=== PATIENT | male | born 1955 | race Caucasian/White ===

== ENCOUNTER 2017-10-24 18:52 | Inpatient (IN) ==
[2017-10-24 20:00] LABS: Eosinophils % 7.5 % (0.00-10.9); Hemoglobin 12.4 GM/DL (14.0-18.0); Lymphocytes # 0.2 10*3/uL (1.4-4.0); Lymphocytes % 37.5 % (21.2-54.2); Mean Corpuscular HGB Conc 34.4 GM/DL (32-36); Mean Corpuscular Hemoglobin 28 PG (27-34); Mean Platelet Volume 10.8 FL (9.6-12.0); Monocytes # 0.2 10*3/uL (0.11-0.8); Monocytes % 37.5 % (1.7-12.7); Neutrophils # 0.1 10*3/uL (1.4-7.4); Neutrophils % 17.5 % (38.7-73.9); Platelet Count 128 T/CUMM (130-400); Red Blood Count 4.39 MC/CUMM (3.8-5.5); Red Cell Distribution Width 12.3 % (9.3-17.3)
[2017-10-24 20:13] LABS: White Blood Count 0.4 T/CUMM (4-12)
[2017-10-24] MEDS ORDERED: SODIUM CHLORIDE 0.9% 1,000 ML IV STA (20:30)
[2017-10-24 20:37] LABS: Eosinophils 18 % (0-10); Lymphocytes 48 % (20-55); Microcytosis Slight; Platelet Estimate Adequate; Segmented Neutrophils 13 % (50-85); Total Cells Counted 102
[2017-10-24 20:39] LABS: Albumin 3.2 G/DL (3.4-5.0); Bilirubin,Total 1.6 MG/DL (0.2-1.0); Calcium 8.4 MG/DL (8.5-10.1); Osmolality,Calculated 281.7 MOS/KG (273-304); Potassium 3.6 MMOL/L (3.5-5.1); Total Protein 6.8 G/DL (6.4-8.3)
[2017-10-24 20:40] LABS: Lactic Acid 1.3 MMOL/L (0.4-2.0)
[2017-10-25] MEDS ORDERED: GLUCAGON 1 MG VIAL IM PRN (00:01)
[2017-10-25] MEDS ORDERED: DEXTROSE 50% 25 GM/50 ML VIAL IV PRN (00:01)
[2017-10-25] MEDS ORDERED: DEXTROSE 5% NACL 0.45% 1,000 ML IV SCH (00:01)
[2017-10-25] MEDS ORDERED: ONDANSETRON 4 MG/2 ML VIAL IV PRN ×2 (00:01→07:05)
[2017-10-25] MEDS: MEROPENEM 1,000 MG in SODIUM CHLORIDE 0.9% 100 ML IV SCH ×4 (00:23→23:20)
[2017-10-25] MEDS: FILGRASTIM-SNDZ 300 MCG/0.5 ML SYRINGE SUBCUT SCH ×2 (00:37→08:20)
[2017-10-25] MEDS: ACETAMINOPHEN 325 MG TABLET PO PRN ×3 (04:17→20:39)
[2017-10-25] MEDS ORDERED: PROMETHAZINE INJ 25 MG in SODIUM CHLORIDE 0.9% 50 ML IV PRN (07:05)
[2017-10-25] MEDS ORDERED: LOPERAMIDE 2 MG CAPSULE PO PRN ×2 (07:05)
[2017-10-25] MEDS ORDERED: traMADol 50 MG TABLET PO PRN (07:05)
[2017-10-25] MEDS ORDERED: ALPRAZolam 0.25 MG TABLET PO PRN (07:05)
[2017-10-25] MEDS ORDERED: MYLANTA/LIDO VISC 2:1 300 ML BOTTLE SWISH/SWAL PRN (07:05)
[2017-10-25] MEDS ORDERED: chlorproMAZINE INJ 25 MG in SODIUM CHLORIDE 0.9% 100 ML IV PRN (07:05)
[2017-10-25] MEDS ORDERED: BENZTROPINE 2 MG/2 ML AMP IV PRN (07:05)
[2017-10-25] MEDS ORDERED: chlorproMAZINE 25 MG TABLET PO PRN (07:05)
[2017-10-25] MEDS ORDERED: MYLANTA/LIDO VISC 2:1 300 ML BOTTLE SWISH/SPIT PRN (07:05)
[2017-10-25] MEDS ORDERED: ACETAMINOPHEN 325 MG TABLET PO PRN (07:05)
[2017-10-25] MEDS ORDERED: diphenhydrAMINE CAP 25 MG CAPSULE PO PRN (07:05)
[2017-10-25] MEDS ORDERED: ALUMINUM/MAGNES/SIMETH MAX STR 30 ML UDCUP PO PRN (07:05)
[2017-10-25] MEDS ORDERED: guaiFENesin 200 MG/10 ML UDCUP PO PRN (07:05)
[2017-10-25] MEDS ORDERED: chlorproMAZINE INJ 50 MG in SODIUM CHLORIDE 0.9% 100 ML IV PRN (07:05)
[2017-10-25] MEDS ORDERED: MAGNESIUM HYDROXIDE SUSP 30 ML UDCUP PO PRN (07:05)
[2017-10-25] MEDS ORDERED: TEMAZEPAM 7.5 MG CAPSULE PO PRN (07:05)
[2017-10-25] MEDS ORDERED: LACTULOSE 20 GM/30 ML UDCUP PO PRN (07:05)
[2017-10-25 08:57] LABS: Eosinophils % 5.4 % (0.00-10.9); Hematocrit 32.4 VOL% (42.0-52.0); Lymphocytes # 0.3 10*3/uL (1.4-4.0); Lymphocytes % 46.4 % (21.2-54.2); Mean Corpuscular Hemoglobin 29 PG (27-34); Mean Corpuscular Volume 83.9 FL (87-102); Mean Platelet Volume 10.7 FL (9.6-12.0); Monocytes # 0.2 10*3/uL (0.11-0.8); Monocytes % 37.5 % (1.7-12.7); Neutrophils # 0.1 10*3/uL (1.4-7.4); Neutrophils % 10.7 % (38.7-73.9); Red Blood Count 3.86 MC/CUMM (3.8-5.5); Red Cell Distribution Width 12.5 % (9.3-17.3)
[2017-10-25 08:58] LABS: Platelet Count 106 T/CUMM (130-400); White Blood Count 0.6 T/CUMM (4-12)
[2017-10-25 09:20] LABS: Hypochromasia 1+; Lymphocytes 80 % (20-55); Platelet Estimate Decreased; Segmented Neutrophils 10 % (50-85); Total Cells Counted 100
[2017-10-25 09:21] LABS: Microcytosis Slight
[2017-10-25 09:35] LABS: Albumin 2.6 G/DL (3.4-5.0); Bilirubin,Total 1.3 MG/DL (0.2-1.0); Osmolality,Calculated 280.1 MOS/KG (273-304); Potassium 3.8 MMOL/L (3.5-5.1); Total Protein 6.4 G/DL (6.4-8.3)
[2017-10-25] MEDS: DEXT 5% NACL 0.45% KCL 20 MEQ 20 MEQ/1,000 ML BAG IV SCH ×2 (09:43→20:37)
[2017-10-25 12:04] LABS: Apearance,Urine CLEAR (Clear); Bilirubin,Urine Negative (Negative); Blood, Urine Negative (Negative); Glucose,Urine (UA) >=500 mg/dL (Negative); Ketones,Urine 5 mg/dL (Negative); Mucus,Urine Occasional /LPF (Occasional); Nitrite,Urine Negative (Negative); Protein,Urine Negative; RBC,Urine 1 /HPF (0-4); Urine Color Yellow (Yellow); Urine Specific Gravity 1.017 (1.001-1.035); Urine Urobilinogen < 2.0 EU/DL (0.2-1.0); WBC,Urine 1 /HPF (0-6)
[2017-10-25] MEDS ORDERED: ONDANSETRON 4 MG TABLET PO PRN (12:40)
[2017-10-25] MEDS ORDERED: PSYLLIUM POWDER 3.7 GM/PACK PO PRN (12:40)
[2017-10-25] MEDS ORDERED: POLYETHYLENE GLYCOL POWDER 17 GM PACK PO PRN (12:40)
[2017-10-25] MEDS: LOSARTAN 50 MG TABLET PO SCH (13:12)
[2017-10-25] MEDS: CHOLECALCIFEROL 1,000 UNIT TABLET PO SCH (13:12)
[2017-10-25] MEDS: MULTIVITAMIN (CENTRUM) TABLET PO SCH (13:12)
[2017-10-25] MEDS: ALLOPURINOL 100 MG TABLET PO SCH (13:12)
[2017-10-25] MEDS: DRONEDARONE 400 MG TABLET PO SCH (13:30)
[2017-10-25] MEDS: ASPIRIN EC 81 MG TABLET PO SCH (20:40)
[2017-10-25] MEDS: SIMVASTATIN 10 MG TABLET PO SCH (20:41)
[2017-10-25] MEDS: FLUTICASONE 50 MCG NASAL SPRAY 16 GM BOTTLE BOTH NARES SCH (20:42)
[2017-10-25] MEDS: traZODone 50 MG TABLET PO SCH (22:06)
[2017-10-26] MEDS: ACETAMINOPHEN 325 MG TABLET PO PRN ×4 (02:32→23:46)
[2017-10-26] MEDS: DEXT 5% NACL 0.45% KCL 20 MEQ 20 MEQ/1,000 ML BAG IV SCH ×3 (02:34→19:49)
[2017-10-26 04:23] LABS: Basophils % 0.8 % (0.0-0.8); Eosinophils # 0.1 10*3/uL (0.0-0.87); Eosinophils % 9.3 % (0.00-10.9); Hematocrit 31.9 VOL% (42.0-52.0); Hemoglobin 10.8 GM/DL (14.0-18.0); Immature Granulocytes % 6.8 %; Immature Granulocytes Absolute 0.08 #; Lymphocytes # 0.5 10*3/uL (1.4-4.0); Lymphocytes % 40.7 % (21.2-54.2); Mean Corpuscular HGB Conc 33.9 GM/DL (32-36); Mean Corpuscular Hemoglobin 29 PG (27-34); Mean Corpuscular Volume 84.4 FL (87-102); Mean Platelet Volume 10.7 FL (9.6-12.0); Monocytes # 0.4 10*3/uL (0.11-0.8); Monocytes % 35.6 % (1.7-12.7); Neutrophils # 0.1 10*3/uL (1.4-7.4); Neutrophils % 6.8 % (38.7-73.9); Platelet Count 106 T/CUMM (130-400); Red Blood Count 3.78 MC/CUMM (3.8-5.5); Red Cell Distribution Width 12.8 % (9.3-17.3); White Blood Count 1.2 T/CUMM (4-12)
[2017-10-26 04:42] LABS: Albumin 2.6 G/DL (3.4-5.0); Bilirubin,Total 1.2 MG/DL (0.2-1.0); Calcium 7.8 MG/DL (8.5-10.1); Osmolality,Calculated 275.8 MOS/KG (273-304); Potassium 3.7 MMOL/L (3.5-5.1); Total Protein 6.3 G/DL (6.4-8.3)
[2017-10-26 05:17] LABS: Band Neutrophils 7 % (0-10); Eosinophils 7 % (0-10); Metamyelocytes 7 %; Segmented Neutrophils 9 % (50-85)
[2017-10-26 05:18] LABS: Lymphocytes 44 % (20-55); Platelet Estimate Decreased; Total Cells Counted 100
[2017-10-26 05:19] LABS: Anisocytosis Slight; Macrocytosis Slight
[2017-10-26] MEDS: FILGRASTIM-SNDZ 300 MCG/0.5 ML SYRINGE SUBCUT SCH (09:56)
[2017-10-26] MEDS: MEROPENEM 1,000 MG in SODIUM CHLORIDE 0.9% 100 ML IV SCH ×3 (09:56→23:39)
[2017-10-26] MEDS: CHOLECALCIFEROL 1,000 UNIT TABLET PO SCH (09:57)
[2017-10-26] MEDS: ALLOPURINOL 100 MG TABLET PO SCH (09:57)
[2017-10-26] MEDS: MULTIVITAMIN (CENTRUM) TABLET PO SCH (09:57)
[2017-10-26] MEDS: LOSARTAN 50 MG TABLET PO SCH (09:58)
[2017-10-26] MEDS: FUROSEMIDE 20 MG TABLET PO SCH (09:58)
[2017-10-26] MEDS: DRONEDARONE 400 MG TABLET PO SCH (10:02)
[2017-10-26] MEDS: FLUTICASONE 50 MCG NASAL SPRAY 16 GM BOTTLE BOTH NARES SCH ×2 (11:08→21:23)
[2017-10-26] MEDS: SIMVASTATIN 10 MG TABLET PO SCH (21:22)
[2017-10-26] MEDS: ASPIRIN EC 81 MG TABLET PO SCH (21:22)
[2017-10-26] MEDS: traZODone 50 MG TABLET PO SCH (22:29)
[2017-10-27] MEDS: DEXT 5% NACL 0.45% KCL 20 MEQ 20 MEQ/1,000 ML BAG IV SCH (04:18)
[2017-10-27 04:44] LABS: Basophils # 0.1 10*3/uL (0.0-0.2); Basophils % 1.1 % (0.0-0.8); Eosinophils # 0.2 10*3/uL (0.0-0.87); Eosinophils % 4.4 % (0.00-10.9); Hematocrit 31.6 VOL% (42.0-52.0); Hemoglobin 10.7 GM/DL (14.0-18.0); Immature Granulocytes % 11.2 %; Immature Granulocytes Absolute 0.59 #; Lymphocytes # 1.1 10*3/uL (1.4-4.0); Lymphocytes % 21.3 % (21.2-54.2); Mean Corpuscular HGB Conc 33.9 GM/DL (32-36); Mean Corpuscular Hemoglobin 29 PG (27-34); Mean Corpuscular Volume 84.9 FL (87-102); Mean Platelet Volume 10.7 FL (9.6-12.0); Monocytes # 0.8 10*3/uL (0.11-0.8); Monocytes % 15.4 % (1.7-12.7); Neutrophils # 2.5 10*3/uL (1.4-7.4); Neutrophils % 46.6 % (38.7-73.9); Platelet Count 127 T/CUMM (130-400); Red Blood Count 3.72 MC/CUMM (3.8-5.5); Red Cell Distribution Width 13.1 % (9.3-17.3); White Blood Count 5.3 T/CUMM (4-12)
[2017-10-27 05:23] LABS: Albumin 2.3 G/DL (3.4-5.0); Bilirubin,Total 1.1 MG/DL (0.2-1.0); Calcium 8.1 MG/DL (8.5-10.1); Osmolality,Calculated 280.4 MOS/KG (273-304); Potassium 3.9 MMOL/L (3.5-5.1); Total Protein 5.9 G/DL (6.4-8.3)
[2017-10-27 06:04] LABS: Band Neutrophils 9 % (0-10); Eosinophils 4 % (0-10); Lymphocytes 28 % (20-55); Segmented Neutrophils 43 % (50-85); Total Cells Counted 100
[2017-10-27 06:05] LABS: Atypical Lymphocytes Few; Hypochromasia 1+
[2017-10-27 06:06] LABS: Microcytosis 1+; Platelet Estimate Adequate
[2017-10-27] MEDS: MULTIVITAMIN (CENTRUM) TABLET PO SCH (08:29)
[2017-10-27] MEDS: CHOLECALCIFEROL 1,000 UNIT TABLET PO SCH (08:29)
[2017-10-27] MEDS: LOSARTAN 50 MG TABLET PO SCH (08:29)
[2017-10-27] MEDS: ALLOPURINOL 100 MG TABLET PO SCH (08:30)
[2017-10-27] MEDS: DRONEDARONE 400 MG TABLET PO SCH (08:30)
[2017-10-27] MEDS: FILGRASTIM-SNDZ 300 MCG/0.5 ML SYRINGE SUBCUT SCH (08:30)
[2017-10-27] MEDS: MEROPENEM 1,000 MG in SODIUM CHLORIDE 0.9% 100 ML IV SCH (08:31)
[2017-10-27] MEDS: FUROSEMIDE 20 MG TABLET PO SCH (08:33)
[2017-10-27] MEDS: FLUTICASONE 50 MCG NASAL SPRAY 16 GM BOTTLE BOTH NARES SCH (08:38)
[2017-10-27 08:45] VITALS: BP 114/80
[2017-10-27] MEDS ORDERED: HEPARIN LOCK FLUSH 500 UNIT/5 ML SYRINGE IV ONE (10:41)
== END 2017-10-27 10:54 | disposition home or self-care (01) | DRG 872 ==
LOC: N.ED 18:52 → N.EDINP 21:54 → N.TELEN 22:57 → N.4E 10-25 05:58
PROVIDERS: ADMIT Specialist; ATTEND Specialist

== ENCOUNTER 2019-08-23 14:22 | Inpatient (IN) ==
[2019-08-23] MEDS ORDERED: MAGNESIUM SULF RIDER 4 GM in PREMIX 1 EACH IV PRN (14:45)
[2019-08-23] MEDS ORDERED: diphenhydrAMINE CAP 25 MG CAPSULE PO PRN (14:45)
[2019-08-23] MEDS ORDERED: MORPHINE 4 MG/1 ML VIAL IV PRN (14:45)
[2019-08-23] MEDS ORDERED: ALUMINUM/MAGNES/SIMETH MAX STR 30 ML UDCUP PO PRN (14:45)
[2019-08-23] MEDS ORDERED: MAGNESIUM SULF RIDER 2 GM in PREMIX 1 EACH IV PRN (14:45)
[2019-08-23] MEDS ORDERED: hydrALAZINE 20 MG/1 ML VIAL IV PRN (14:45)
[2019-08-23] MEDS ORDERED: ONDANSETRON 4 MG/2 ML VIAL IV PRN (14:45)
[2019-08-23] MEDS ORDERED: ZALEPLON 5 MG CAPSULE PO PRN (14:45)
[2019-08-23] MEDS ORDERED: FLECAINIDE 100 MG TABLET PO ONE (14:49)
[2019-08-23] MEDS ORDERED: FUROSEMIDE 20 MG TABLET PO PRN (14:50)
[2019-08-23] MEDS ORDERED: traZODone 50 MG TABLET PO PRN (14:51)
[2019-08-23] MEDS ORDERED: FLECAINIDE 50 MG TABLET PO SCH (15:00)
[2019-08-23] MEDS ORDERED: POLYETHYLENE GLYCOL POWDER 17 GM PACK PO PRN (16:12)
[2019-08-23 18:18] LABS: Basophils % 0.6 % (0.0-0.8); Eosinophils # 0.3 10*3/uL (0.0-0.87); Eosinophils % 4.2 % (0.00-10.9); Hematocrit 37.9 VOL% (42.0-52.0); Hemoglobin 12.8 GM/DL (14.0-18.0); Immature Granulocytes % 0.1 %; Immature Granulocytes Absolute 0.01 #; Lymphocytes # 1.2 10*3/uL (1.4-4.0); Lymphocytes % 17.2 % (21.2-54.2); Mean Corpuscular HGB Conc 33.8 GM/DL (32-36); Mean Corpuscular Volume 87.3 FL (87-102); Mean Platelet Volume 10.3 FL (9.6-12.0); Monocytes % 8.4 % (1.7-12.7); Neutrophils % 69.5 % (38.7-73.9); Platelet Count 167 T/CUMM (130-400); Red Blood Count 4.34 MC/CUMM (3.8-5.5); Red Cell Distribution Width 13.2 % (9.3-17.3); White Blood Count 7.2 T/CUMM (4-12)
[2019-08-23 18:38] LABS: Alanine Aminotransferase 22 U/L (16-61); Albumin 3.5 G/DL (3.4-5.0); Alkaline Phosphatase 65 U/L (45-117); Aspartate Amino Transferase 15 U/L (0-37); Bilirubin,Total < 0.39 MG/DL (0.2-1.0); Blood Urea Nitrogen 24 MG/DL (7-18); Calcium 8.4 MG/DL (8.5-10.1); Estimated Glom Filtration Rate 60 ML/MIN; Glucose 153 MG/DL (74-106); Osmolality,Calculated 285.4 MOS/KG (273-304); Total Protein 6.6 G/DL (6.4-8.3)
[2019-08-23] MEDS: APIXABAN 5 MG TABLET PO SCH (21:41)
[2019-08-23] MEDS: ASCORBIC ACID 500 MG TABLET PO SCH (21:41)
[2019-08-23] MEDS: ASPIRIN EC 81 MG TABLET PO SCH (21:41)
[2019-08-23] MEDS: ROSUVASTATIN 10 MG TABLET PO SCH (21:41)
[2019-08-23] MEDS: FLECAINIDE 50 MG TABLET PO SCH (22:14)
[2019-08-23] MEDS: METOPROLOL TARTRATE 25 MG TABLET PO SCH (22:14)
[2019-08-24 06:42] LABS: Basophils # 0.1 10*3/uL (0.0-0.2); Eosinophils # 0.3 10*3/uL (0.0-0.87); Eosinophils % 5.1 % (0.00-10.9); Hematocrit 38.8 VOL% (42.0-52.0); Hemoglobin 12.5 GM/DL (14.0-18.0); Immature Granulocytes % 0.3 %; Immature Granulocytes Absolute 0.02 #; Lymphocytes # 1.3 10*3/uL (1.4-4.0); Lymphocytes % 21.9 % (21.2-54.2); Mean Corpuscular HGB Conc 32.2 GM/DL (32-36); Mean Platelet Volume 10.7 FL (9.6-12.0); Monocytes % 8.1 % (1.7-12.7); Neutrophils % 63.6 % (38.7-73.9); Platelet Count 153 T/CUMM (130-400); Red Blood Count 4.31 MC/CUMM (3.8-5.5); Red Cell Distribution Width 13.2 % (9.3-17.3)
[2019-08-24 07:05] LABS: Risk Ratio 3.33; VLDL CHOLESTEROL 25.8 MG/DL
[2019-08-24 07:07] LABS: Albumin 3.4 G/DL (3.4-5.0); Bilirubin,Total 0.6 MG/DL (0.2-1.0); Calcium 8.3 MG/DL (8.5-10.1); Osmolality,Calculated 278.7 MOS/KG (273-304)
[2019-08-24] MEDS: PANTOPRAZOLE 40 MG TABLET PO SCH (09:42)
[2019-08-24] MEDS: LOSARTAN 50 MG TABLET PO SCH (09:42)
[2019-08-24] MEDS: METOPROLOL TARTRATE 25 MG TABLET PO SCH (09:42)
[2019-08-24] MEDS: ASCORBIC ACID 500 MG TABLET PO SCH ×2 (09:42→20:53)
[2019-08-24] MEDS: APIXABAN 5 MG TABLET PO SCH ×2 (09:42→20:52)
[2019-08-24] MEDS: FLECAINIDE 50 MG TABLET PO SCH ×2 (09:47→20:52)
[2019-08-24] MEDS ORDERED: LORATADINE 10 MG TABLET PO PRN (10:56)
[2019-08-24] MEDS: MULTIVITAMIN (CENTRUM) TABLET PO SCH (12:46)
[2019-08-24] MEDS: CHOLECALCIFEROL 1,000 UNIT TABLET PO SCH (12:46)
[2019-08-24] MEDS: ROSUVASTATIN 10 MG TABLET PO SCH (20:52)
[2019-08-24] MEDS: ASPIRIN EC 81 MG TABLET PO SCH (20:55)
[2019-08-25 06:20] LABS: Basophils # 0.1 10*3/uL (0.0-0.2); Basophils % 0.6 % (0.0-0.8); Eosinophils # 0.4 10*3/uL (0.0-0.87); Eosinophils % 4.9 % (0.00-10.9); Hematocrit 37.4 VOL% (42.0-52.0); Hemoglobin 12.7 GM/DL (14.0-18.0); Immature Granulocytes % 0.3 %; Immature Granulocytes Absolute 0.02 #; Lymphocytes # 1.4 10*3/uL (1.4-4.0); Lymphocytes % 17.3 % (21.2-54.2); Mean Corpuscular Volume 86.2 FL (87-102); Mean Platelet Volume 10.7 FL (9.6-12.0); Monocytes % 9.8 % (1.7-12.7); Neutrophils % 67.1 % (38.7-73.9); Platelet Count 151 T/CUMM (130-400); Red Blood Count 4.34 MC/CUMM (3.8-5.5); Red Cell Distribution Width 13.2 % (9.3-17.3)
[2019-08-25 06:39] LABS: Calcium 8.4 MG/DL (8.5-10.1)
[2019-08-25] MEDS: FLECAINIDE 50 MG TABLET PO SCH (09:13)
[2019-08-25] MEDS: CHOLECALCIFEROL 1,000 UNIT TABLET PO SCH (09:14)
[2019-08-25] MEDS: APIXABAN 5 MG TABLET PO SCH (09:14)
[2019-08-25] MEDS: ASCORBIC ACID 500 MG TABLET PO SCH (09:14)
[2019-08-25] MEDS: LOSARTAN 50 MG TABLET PO SCH (09:14)
[2019-08-25] MEDS: MULTIVITAMIN (CENTRUM) TABLET PO SCH (09:14)
[2019-08-25] MEDS: PANTOPRAZOLE 40 MG TABLET PO SCH ×2 (09:14→09:15)
[2019-08-25 11:39] VITALS: BP 129/73
== END 2019-08-25 16:07 | disposition home or self-care (01) | DRG 310 ==
LOC: N.TELES 16:04
PROVIDERS: ADMIT Internal Medicine Cardiovascular Disease; ATTEND Internal Medicine Cardiovascular Disease

== ENCOUNTER 2020-07-30 18:31 | Inpatient (IN) ==
[2020-07-30] MEDS ORDERED: ASPIRIN 325 MG TABLET PO STA (18:58)
[2020-07-30] MEDS ORDERED: MORPHINE 4 MG/1 ML VIAL IV STA ×2 (18:58→19:38)
[2020-07-30] MEDS ORDERED: ENOXAPARIN 100 MG/ML SYRINGE SUBCUT STA (18:58)
[2020-07-30] MEDS ORDERED: PANTOPRAZOLE 40 MG VIAL IV STA (18:58)
[2020-07-30] MEDS ORDERED: ONDANSETRON 4 MG/2 ML VIAL IV STA (18:58)
[2020-07-30] MEDS ORDERED: NITROGLYCERIN 2% OINT 1 INCH/GM PACK TOP STA (18:58)
[2020-07-30] MEDS ORDERED: ALUM/MAG/SIMETH/LIDO VISC 1:1 30 ML BOTTLE PO STA (18:58)
[2020-07-30 19:05] LABS: Basophils # 0.1 10*3/uL (0.0-0.2); Basophils % 0.7 % (0.0-0.8); Eosinophils # 0.2 10*3/uL (0.0-0.87); Eosinophils % 2.8 % (0.00-10.9); Immature Granulocytes % 0.5 %; Immature Granulocytes Absolute 0.04 #; Lymphocytes # 1.6 10*3/uL (1.4-4.0); Lymphocytes % 19.3 % (21.2-54.2); Mean Corpuscular HGB Conc 34.1 GM/DL (32-36); Mean Corpuscular Volume 87.3 FL (87-102); Mean Platelet Volume 10.2 FL (9.6-12.0); Monocytes % 9.5 % (1.7-12.7); Neutrophils % 67.2 % (38.7-73.9); Platelet Count 178 T/CUMM (130-400); Red Blood Count 5.04 MC/CUMM (3.8-5.5); Red Cell Distribution Width 13.2 % (9.3-17.3); White Blood Count 8.4 T/CUMM (4-12)
[2020-07-30 19:16] LABS: PT Patient Result 11.3 SECS (10.5-12.0)
[2020-07-30 19:33] LABS: Albumin 3.6 G/DL (3.4-5.0); Bilirubin,Total 0.5 MG/DL (0.2-1.0); Calcium 9.7 MG/DL (8.5-10.1); Osmolality,Calculated 280.5 MOS/KG (273-304); Potassium 4.1 MMOL/L (3.5-5.1); Total Protein 6.9 G/DL (6.4-8.2)
[2020-07-30] MEDS ORDERED: MAGNESIUM SULF RIDER 2 GM/50 ML PREMIX IV STA (19:36)
[2020-07-30] MEDS ORDERED: GLUCAGON 1 MG VIAL IM PRN (20:11)
[2020-07-30] MEDS ORDERED: ZALEPLON 5 MG CAPSULE PO PRN (20:11)
[2020-07-30] MEDS ORDERED: ONDANSETRON 4 MG/2 ML VIAL IV PRN (20:11)
[2020-07-30] MEDS ORDERED: DEXTROSE 50% 25 GM/50 ML VIAL IV PRN (20:11)
[2020-07-30] MEDS ORDERED: ENOXAPARIN 100 MG/ML SYRINGE SUBCUT SCH (21:00)
[2020-07-30 21:02] LABS: Risk Ratio 3.94; VLDL CHOLESTEROL 48.4 MG/DL
[2020-07-31] MEDS: NITROGLYCERIN 2% OINT 1 INCH/GM PACK TOP SCH ×4 (01:07→18:40)
[2020-07-31 05:34] LABS: Albumin 3.4 G/DL (3.4-5.0); Bilirubin,Total 0.8 MG/DL (0.2-1.0); Calcium 9.1 MG/DL (8.5-10.1); Osmolality,Calculated 281.4 MOS/KG (273-304); Potassium 4.4 MMOL/L (3.5-5.1); Total Protein 6.1 G/DL (6.4-8.2)
[2020-07-31] MEDS ORDERED: ENOXAPARIN 100 MG/ML SYRINGE SUBCUT SCH (07:00)
[2020-07-31] MEDS ORDERED: FLECAINIDE 50 MG TABLET PO SCH (09:00)
[2020-07-31] MEDS: ASPIRIN CHEW 81 MG TABLET PO SCH (09:17)
[2020-07-31] MEDS: ASCORBIC ACID 500 MG TABLET PO SCH ×2 (09:18→21:33)
[2020-07-31] MEDS: METOPROLOL TARTRATE 25 MG TABLET PO SCH ×2 (09:18→21:33)
[2020-07-31] MEDS: PANTOPRAZOLE 40 MG TABLET PO SCH (09:18)
[2020-07-31] MEDS ORDERED: diphenhydrAMINE CAP 25 MG CAPSULE PO ONE (09:53)
[2020-07-31] MEDS ORDERED: DIAZEPAM 5 MG TABLET PO ONE (09:53)
[2020-07-31] MEDS: MORPHINE 4 MG/1 ML VIAL IV PRN ×2 (10:01→19:55)
[2020-07-31] MEDS ORDERED: LIDOCAINE 1% 20 ML VIAL ONE (15:30)
[2020-07-31] MEDS: SODIUM CHLORIDE 0.9% 1,000 ML IV SCH (15:31)
[2020-07-31] MEDS ORDERED: fentaNYL 100 MCG/2 ML VIAL ONE ×2 (15:45→17:08)
[2020-07-31] MEDS ORDERED: MIDAZOLAM 2 MG/2 ML VIAL ONE (15:45)
[2020-07-31] MEDS ORDERED: TIROFIBAN 5,000 MCG/100 ML PREMIX IV ONE (16:09)
[2020-07-31] MEDS ORDERED: HEPARIN 5,000 UNIT/1 ML VIAL ONE (16:11)
[2020-07-31] MEDS ORDERED: TICAGRELOR 90 MG TABLET ONE (16:13)
[2020-07-31] MEDS ORDERED: TIROFIBAN 5,000 MCG/100 ML PREMIX IV SCH (16:17)
[2020-07-31] MEDS ORDERED: NITROGLYCERIN DRIP 50 MG/250 ML BOTTLE IV ONE (17:17)
[2020-07-31] MEDS ORDERED: LORATADINE 10 MG TABLET PO PRN (18:30)
[2020-07-31] MEDS ORDERED: LOSARTAN 50 MG TABLET PO SCH (21:00)
[2020-07-31] MEDS ORDERED: SPIRONOLACTONE 25 MG TABLET PO SCH (21:00)
[2020-07-31] MEDS ORDERED: ROSUVASTATIN 10 MG TABLET PO SCH (21:00)
[2020-07-31] MEDS: TICAGRELOR 90 MG TABLET PO SCH (21:34)
[2020-07-31] MEDS: FLECAINIDE 50 MG TABLET PO SCH (21:35)
[2020-08-01] MEDS: NITROGLYCERIN 2% OINT 1 INCH/GM PACK TOP SCH ×2 (00:28→09:10)
[2020-08-01] MEDS: MORPHINE 4 MG/1 ML VIAL IV PRN (00:28)
[2020-08-01] MEDS: SODIUM CHLORIDE 0.9% 1,000 ML IV SCH (00:49)
[2020-08-01 05:31] LABS: Basophils % 0.4 % (0.0-0.8); Eosinophils # 0.1 10*3/uL (0.0-0.87); Eosinophils % 0.5 % (0.00-10.9); Hematocrit 39.8 VOL% (42.0-52.0); Hemoglobin 13.6 GM/DL (14.0-18.0); Immature Granulocytes % 0.4 %; Immature Granulocytes Absolute 0.04 #; Lymphocytes # 0.9 10*3/uL (1.4-4.0); Lymphocytes % 8.9 % (21.2-54.2); Mean Corpuscular HGB Conc 34.2 GM/DL (32-36); Mean Platelet Volume 10.1 FL (9.6-12.0); Monocytes % 11.9 % (1.7-12.7); Neutrophils % 77.9 % (38.7-73.9); Platelet Count 153 T/CUMM (130-400); Red Blood Count 4.63 MC/CUMM (3.8-5.5); Red Cell Distribution Width 13.3 % (9.3-17.3); White Blood Count 10.4 T/CUMM (4-12)
[2020-08-01 05:50] LABS: Calcium 8.2 MG/DL (8.5-10.1); Osmolality,Calculated 275.8 MOS/KG (273-304)
[2020-08-01] MEDS ORDERED: APIXABAN 5 MG TABLET PO SCH (09:00)
[2020-08-01] MEDS: METOPROLOL TARTRATE 25 MG TABLET PO SCH (09:10)
[2020-08-01] MEDS: FLECAINIDE 50 MG TABLET PO SCH (09:11)
[2020-08-01] MEDS: ASPIRIN CHEW 81 MG TABLET PO SCH (09:11)
[2020-08-01] MEDS: PANTOPRAZOLE 40 MG TABLET PO SCH (09:11)
[2020-08-01] MEDS: TICAGRELOR 90 MG TABLET PO SCH (09:11)
[2020-08-01] MEDS: ASCORBIC ACID 500 MG TABLET PO SCH (09:12)
[2020-08-01 11:59] VITALS: BP 110/56
== END 2020-08-01 13:20 | disposition home or self-care (01) | DRG 247 ==
LOC: N.EDINP 18:31 → N.ED 18:31 → N.TELES 20:43
PROVIDERS: ADMIT Internal Medicine; ATTEND Internal Medicine
PROC: CLCCHCL (ICD-10-PCS; 2020-07-31 14:15)